=== PATIENT | female | born 1980 | race Caucasian/White ===

== ENCOUNTER 2022-04-24 06:05 | Day surgery (SDC) | payer OTHER ==
[~2022-04-24] VITALS: Ht 157.5 cm; Wt 78.9 kg
== END 2022-04-24 20:00 | disposition home or self-care (01) ==
LOC: CIR.AMB 06:05
PROVIDERS: ATTEND Specialist
DX: N64.89 Other specified disorders of breast (principal); N64.81 Ptosis of breast; Z88.6 Allergy status to analgesic agent; Z91.013 Allergy to seafood; L98.7 Excessive and redundant skin and subcutaneous tissue